=== PATIENT | female | born 1980 | race Caucasian/White ===

== ENCOUNTER → 2021-06-23 | Outpatient (CLI) | payer OTHER ==
--- NOTE | 2021-06-23 11:48 | CARD ---
MR#: [id number] Date of Study: 06/23/2021 Ordering Physician: CARLOS GILLESPIE, Referring Physician: CARLOS GILLESPIE, Tech: Eva Magdaleno [facility] APPROVED REPORT EXAM: Two-dimensional and M-mode echocardiogram with Doppler and color Doppler. Other Information Quality : GoodHR: 88bpm Rhythm : PVC's INDICATION Palpitations RISK FACTORS Obesity 2D DIMENSIONS RVDd3.7 (2.9-3.5cm)Left Atrium(2D)3.6 (1.6-4.0cm) IVSd0.9 (0.7-1.1cm)Aortic Root(2D)3.2 (2.0-3.7cm) LVDd5.1 (3.9-5.9cm)LVOT Diameter2.1 (1.8-2.4cm) PWd0.9 (0.7-1.1cm)LVDs2.8 (2.5-4.0cm) FS (%) 44.1 %SV92.6 ml LVEF(%)75.1 (>50%) Aortic Valve AoV Peak Konstantin.119.1cm/sAoV VTI23.1cm AO Peak GR.5.7mmHgLVOT Peak Konstantin.113.9cm/s AO Mean GR.2mmHgAVA (VMAX)3.33cm2 Mitral Valve MV E Aoxfxbfb77.6cm/sMV DECEL [id number] MV A Byhgtgwt93.4cm/sE/A Ratio2.1 Pulmonary Valve PV Peak Xgkumcjm888.7cm/s Tricuspid Valve TR P. Wkyuqbjh272uk/sTR Peak Gr.18mmHg LEFT VENTRICLE The left ventricle is normal size. There is normal left ventricular wall thickness. The left ventricu lar systolic function is normal. Estimated ejection fraction 60%. There is normal LV segmental wall motion. The left ventricular diastolic function and filling is normal for age. RIGHT VENTRICLE The right ventricle is normal size. There is normal right ventricular wall thickness. The right ventr icular systolic function is normal. ATRIA The left atrium size is normal. The right atrium size is normal. The interatrial septum is intact wit h no evidence for an atrial septal defect or patent foramen ovale as noted on 2-D or Doppler imaging. AORTIC VALVE The aortic valve is normal in structure and function. Doppler and Color Flow revealed no significant aortic regurgitation. There is no significant aortic valvular stenosis. MITRAL VALVE The mitral valve is normal in structure and function. There is no evidence of mitral valve prolapse. There is no mitral valve stenosis. Doppler and Color-flow revealed mild mitral regurgitation. TRICUSPID VALVE The tricuspid valve is normal in structure and function. Doppler and Color Flow revealed trace tricus pid regurgitation. Estimated PAP 20 mmHg. There is no tricuspid valve stenosis. PULMONIC VALVE The pulmonary valve is normal in structure and function. Doppler and Color Flow revealed trace to mil d pulmonic valvular regurgitation. GREAT VESSELS The aortic root is normal in size. The ascending aorta is normal in size. The IVC is normal in size a nd collapses >50% with inspiration. PERICARDIAL EFFUSION There is no evidence of significant pericardial effusion. Critical Notification Critical Value: No <Conclusion> The left ventricular systolic function is normal. Estimated ejection fraction 60%. There is normal LV segmental wall motion. Mild mitral regurgitation. Trace tricuspid regurgitation. Estimated PAP 20 mmHg. There is no evidence of significant pericardial effusion. Signed by : Jam Burton, Electronically Approved : 06/23/2021 11:48:13
== END ==
LOC: ECHO 10:30
PROVIDERS: ATTEND Physician Assistant Medical
DX: I08.8 Other rheumatic multiple valve diseases (principal); R00.2 Palpitations
CPT/HCPCS: 93306